=== PATIENT | female | born 1965 | race Caucasian/White ===

== ENCOUNTER 2017-02-19 17:00 | Emergency (ER) | payer MEDICAID ==
[~2017-02-19] VITALS: Ht 157.5 cm; Wt 80.0 kg
[~2017-02-19 17:00] MED LIST: BENAZEPRIL10 M1 PO; GLIPIZIDE10 MG PO; METFORMIN HCL1000 MG; RISPERIDONE3 M2
[2017-02-19 17:07] VITALS: BP 125/80
== END 2017-02-19 18:45 | disposition home or self-care (01) ==
LOC: ED 17:00
DX: N39.0 Urinary tract infection, site not specified (principal); R30.0 Dysuria; E11.9 Type 2 diabetes mellitus without complications

== ENCOUNTER 2017-10-03 07:46 | Emergency (ER) | payer MEDICAID ==
[~2017-10-03] VITALS: Ht 157.5 cm; Wt 75.7 kg
[2017-10-03 07:54] VITALS: BP 144/82
== END 2017-10-03 09:23 | disposition home or self-care (01) ==
LOC: ED 07:46
DX: J98.01 Acute bronchospasm (principal); J02.9 Acute pharyngitis, unspecified; E11.9 Type 2 diabetes mellitus without complications; F20.9 Schizophrenia, unspecified; Z79.84 Long term (current) use of oral hypoglycemic drugs

== ENCOUNTER 2017-11-10 16:26 | Emergency (ER) | payer MEDICAID ==
[~2017-11-10] VITALS: Ht 157.5 cm; Wt 74.8 kg
[2017-11-10 18:43] VITALS: BP 145/94
== END 2017-11-10 18:44 | disposition home or self-care (01) ==
LOC: ED 16:26
DX: N39.0 Urinary tract infection, site not specified (principal); F20.9 Schizophrenia, unspecified

== ENCOUNTER 2017-12-04 11:07 | Emergency (ER) | payer MEDICAID ==
[~2017-12-04] VITALS: Ht 157.5 cm; Wt 73.5 kg
[2017-12-04 11:17] VITALS: BP 138/95; Ht 157.5 cm; Wt 73.5 kg
== END 2017-12-04 13:27 | disposition left against medical advice (07) ==
LOC: ED 11:07
DX: Z53.21 Procedure and treatment not carried out due to patient leaving prior to being seen by health care provider (principal)